=== PATIENT | female | born 1945 | race African-American/Black ===

== ENCOUNTER 2020-11-03 18:03 | Observation (INO) ==
[2020-11-03] MEDS ORDERED: ONDANSETRON 4 MG/2 ML VIAL IV STA (18:33)
[2020-11-03] MEDS ORDERED: SODIUM CHLORIDE 0.9% 500 ML IV STA (18:33)
[2020-11-03 18:43] LABS: Basophils % 0.6 % (0.0-0.8); Eosinophils # 0.6 10*3/uL (0.0-0.87); Eosinophils % 7.6 % (0.00-10.9); Hematocrit 35.9 VOL% (35.7-47.0); Hemoglobin 11.4 GM/DL (12.0-16.0); Immature Granulocytes % 0.3 %; Immature Granulocytes Absolute 0.02 #; Lymphocytes # 2.2 10*3/uL (1.4-4.0); Lymphocytes % 31.1 % (21.3-54.2); Mean Corpuscular HGB Conc 31.8 GM/DL (32-36); Mean Corpuscular Volume 87.3 FL (87-102); Mean Platelet Volume 9.1 FL (9.6-12.0); Monocytes % 9.4 % (1.7-12.7); NRBC # 0.02 10*3/uL; Platelet Count 204 T/CUMM (130-400); Red Blood Count 4.11 MC/CUMM (3.8-5.5); Red Cell Distribution Width 13.7 % (9.3-17.3); White Blood Count 7.2 T/CUMM (4-12)
[2020-11-03 18:53] LABS: Bilirubin,Total 0.9 MG/DL (0.2-1.0); Calcium 9.6 MG/DL (8.5-10.1); Potassium 4.4 MMOL/L (3.5-5.1)
[2020-11-03] MEDS ORDERED: ACETAMINOPHEN 325 MG TABLET PO PRN (21:11)
[2020-11-03] MEDS ORDERED: DEXTROSE 50% 25 GM/50 ML VIAL IV PRN (21:11)
[2020-11-03] MEDS ORDERED: GLUCAGON 1 MG VIAL IM PRN (21:11)
[2020-11-03] MEDS ORDERED: ONDANSETRON 4 MG/2 ML VIAL IV PRN (21:11)
[2020-11-03] MEDS ORDERED: FAMOTIDINE 20 MG TABLET ONE (22:18)
[2020-11-04] MEDS: ALBUTEROL/IPRATROPIUM 3 ML NEB RESP TX SCH ×4 (01:20→20:18)
[2020-11-04] MEDS: DONEPEZIL 5 MG TABLET PO SCH ×2 (02:32→20:32)
[2020-11-04] MEDS: methylPREDNISolone SOD SUC 40 MG/1 ML VIAL IV SCH ×2 (02:32→09:05)
[2020-11-04] MEDS: SODIUM CHLORIDE 0.9% 1,000 ML IV SCH ×2 (02:32→14:50)
[2020-11-04 05:19] LABS: Basophils % 0.3 % (0.0-0.8); Eosinophils % 0.2 % (0.00-10.9); Hematocrit 32.4 VOL% (35.7-47.0); Hemoglobin 10.6 GM/DL (12.0-16.0); Immature Granulocytes % 0.2 %; Immature Granulocytes Absolute 0.01 #; Lymphocytes # 1.3 10*3/uL (1.4-4.0); Lymphocytes % 22.5 % (21.3-54.2); Mean Corpuscular HGB Conc 32.7 GM/DL (32-36); Mean Corpuscular Volume 86.6 FL (87-102); Monocytes % 1.5 % (1.7-12.7); Neutrophils % 75.3 % (38.7-73.9); Platelet Count 201 T/CUMM (130-400); Red Blood Count 3.74 MC/CUMM (3.8-5.5); Red Cell Distribution Width 13.4 % (9.3-17.3); White Blood Count 5.8 T/CUMM (4-12)
[2020-11-04 05:42] LABS: Hypochromasia Slight; Microcytosis Slight; Platelet Estimate Adequate
[2020-11-04 05:50] LABS: Calcium 8.8 MG/DL (8.5-10.1); Osmolality,Calculated 283.8 MOS/KG (273-304); Potassium 5.1 MMOL/L (3.5-5.1)
[2020-11-04] MEDS ORDERED: NITROGLYCERIN SL 0.4 MG TABLET SL ONE (08:53)
[2020-11-04] MEDS ORDERED: MORPHINE 4 MG/1 ML VIAL IV PRN (08:56)
[2020-11-04] MEDS: ROSUVASTATIN 10 MG TABLET PO SCH (09:06)
[2020-11-04] MEDS: FAMOTIDINE 20 MG TABLET PO SCH ×2 (09:06→20:32)
[2020-11-04] MEDS: CITALOPRAM 20 MG TABLET PO SCH (09:06)
[2020-11-04] MEDS: NICOTINE 14 MG/24 HR PATCH TRANSDERM PRN (09:06)
[2020-11-04] MEDS: LOSARTAN 50 MG TABLET PO SCH (09:06)
[2020-11-04] MEDS: INSULIN LISPRO 100 UNIT/ML SUBCUT SCH ×4 (09:20→22:33)
[2020-11-04] MEDS: LACTATED RINGERS 1,000 ML IV SCH ×2 (12:30→20:33)
[2020-11-04] MEDS ORDERED: guaiFENesin/DM ER 600-30 MG TABLET PO PRN (14:40)
[2020-11-04] MEDS ORDERED: HydrOXYzine PAMOATE 25 MG CAPSULE PO PRN (14:44)
[2020-11-04] MEDS ORDERED: ENOXAPARIN 30 MG/0.3 ML SYRINGE SUBCUT SCH (15:00)
[2020-11-04 18:53] LABS: % Iron Saturation 40.6 % (18-50); Ferritin 957.1 ng/ml (8-252)
[2020-11-05] MEDS: ALBUTEROL/IPRATROPIUM 3 ML NEB RESP TX SCH ×2 (00:29→07:50)
[2020-11-05 04:55] LABS: Basophils % 0.1 % (0.0-0.8); Eosinophils # 0.2 10*3/uL (0.0-0.87); Eosinophils % 1.4 % (0.00-10.9); Hematocrit 30.1 VOL% (35.7-47.0); Hemoglobin 9.7 GM/DL (12.0-16.0); Immature Granulocytes % 0.3 %; Immature Granulocytes Absolute 0.03 #; Lymphocytes # 5.1 10*3/uL (1.4-4.0); Lymphocytes % 43.4 % (21.3-54.2); Mean Corpuscular HGB Conc 32.2 GM/DL (32-36); Mean Corpuscular Volume 87.8 FL (87-102); Mean Platelet Volume 8.7 FL (9.6-12.0); Monocytes % 8.2 % (1.7-12.7); Neutrophils % 46.6 % (38.7-73.9); Platelet Count 216 T/CUMM (130-400); Red Blood Count 3.43 MC/CUMM (3.8-5.5); Red Cell Distribution Width 13.6 % (9.3-17.3); White Blood Count 11.8 T/CUMM (4-12)
[2020-11-05 05:02] LABS: Calcium 8.5 MG/DL (8.5-10.1); Osmolality,Calculated 287.8 MOS/KG (273-304); Potassium 3.7 MMOL/L (3.5-5.1)
[2020-11-05] MEDS: INSULIN LISPRO 100 UNIT/ML SUBCUT SCH ×2 (08:23→11:34)
[2020-11-05] MEDS ORDERED: predniSONE 20 MG TABLET PO SCH (09:00)
[2020-11-05] MEDS: FAMOTIDINE 20 MG TABLET PO SCH (09:26)
[2020-11-05] MEDS: NICOTINE 14 MG/24 HR PATCH TRANSDERM PRN (09:26)
[2020-11-05] MEDS: LOSARTAN 50 MG TABLET PO SCH (09:26)
[2020-11-05] MEDS: CITALOPRAM 20 MG TABLET PO SCH (09:26)
[2020-11-05] MEDS: ROSUVASTATIN 10 MG TABLET PO SCH (09:27)
[2020-11-05] MEDS: LACTATED RINGERS 1,000 ML IV SCH (09:34)
[2020-11-05 12:25] VITALS: BP 128/55
[2020-11-05] MEDS ORDERED: ENOXAPARIN 40 MG/0.4 ML SYRINGE SUBCUT SCH (15:00)
== END 2020-11-05 15:06 | disposition home health service (06) ==
LOC: N.ED 18:03 → N.EDINP 18:03 → N.4E 23:27
PROVIDERS: ADMIT Internal Medicine; ATTEND Internal Medicine